=== PATIENT | female | born 1935 | race American Indian/Alaskan Native ===

== ENCOUNTER 2019-02-20 14:54 | Emergency (ER) | payer MEDICARE, OTHER ==
[2019-02-21 05:57] VITALS: BP 158/50
== END 2019-02-21 05:47 | disposition home or self-care (01) ==
LOC: ED 14:54
DX: S39.012A Strain of muscle, fascia and tendon of lower back, initial encounter (principal); M54.30 Sciatica, unspecified side; Z79.899 Other long term (current) drug therapy; X58.XXXA Exposure to other specified factors, initial encounter; Y93.89 Activity, other specified; Y92.89 Other specified places as the place of occurrence of the external cause; Y99.8 Other external cause status
CPT/HCPCS: 36415; 71045; 73502; 80053; 81001; 83735; 85027; 87076; 87086; 87186; 93005; 93010; 96361; 96365; 96372; 96375; 96376; 99284; J0696; J1885; J2270; J2405; J7030